=== PATIENT | female | born 1955 | race Caucasian/White ===

== ENCOUNTER → 2016-09-19 | Outpatient (CLI) | payer OTHER ==
[~2016-09-19] MED LIST: AMITIZA24 MCG PO; BUPAP 50 MG-301 EACH PO; DITROPAN XL5 M2; DULOXETINE HCL60 M1; MEVACOR10 MG PO; NEURONTIN100 MG PO; NEXIUM PO; SINGULAIR PO; TRIAMCINOLONE A15 G3 EXT; VOLTAREN75 MG; ZESTRIL10 M1 PO
--- NOTE | ~2016-09-19 | MR17 ---
[facility] A Service of [facility] RADIOLOGY TEXT RESULTS PATIENT: CHASTITY RAWLS LOCATION: [facility] : 55 UNIT #: [id number] AGE: [address]: Heraclio Lima II, MD SEX: F ORDER DR: [id number] [place] [id number] O MR#: [id number] Acc #: [id number] NAME: CHASTITY RAWLS : 1955 SEX: F STUDY DATE/TIME: 09/19/2016 9:13 UNIT: [facility] ROOM: STUDY DESCRIPTION: MR Brain WWo Contrast Attending Physician: Heraclio Lima II., M.D. Referring Physician: Heraclio Lima II., M.D. Ordering Physician: Heraclio Lima II., M.D. Primary Care Physician: Jemma Salinas M.D. MRI CENTER REPORT This report is preliminary unless electronic signature is present. EXAM MRI of the brain with and without contrast dated 09/19/2016. COMPARISON None. HISTORY Headaches since age 9. History of migraines for less than 30 years. Also has nausea and vomiting. FINDINGS Multisequence multiplanar imaging of the brain was obtained with and without contrast. GFR measured 49. 20 mL of MultiHance was administered intravenously. Age-appropriate parenchymal volume is seen. Punctate 1 or 2 hyperintense T2 tiny foci are noted in the white matter particularly in the left frontal periventricular region, nonspecific. No acute stroke, space-occupying intracranial mass, mass effect, midline shift or hydrocephalus. Postcontrast sequences do not demonstrate enhancing mass. Thick slices through the sella with the pituitary gland demonstrates an empty sella. Pineal region and upper cervical spine are grossly unremarkable. Mild S-shaped nasal septal deviation is seen. Paranasal sinuses, orbits with the ocular structures and mastoids do not demonstrate any significant abnormality. IMPRESSION 1. No acute intracranial abnormality or enhancing mass. 2. Punctate 1 or 2 hyperintense T2 foci are noted in the left frontal periventricular white matter, likely related to minimal chronic microvascular ischemic change or migraine based on age and statistics. 3. No enhancing intracranial mass. 1. Dictated by... [facility]. [facility] A Service of [facility] RADIOLOGY TEXT RESULTS PATIENT: CHASTITY RAWLS LOCATION: [facility] : 55 UNIT #: [id number] AGE: [address]: Heraclio Lima II, MD SEX: F ORDER DR: Tony Mace M.D. THIS IS AN ELECTRONICALLY VERIFIED REPORT Tony Mace M.D. at 09/20/2016 3:41 PM CPR/bd TD: 09/20/2016 09:58 JOB #: [id number] MRI CENTER REPORT Page 1 of 1
[2016-09-19 10:15] LABS: POC - CREATININE 1.2 mg/dL (0.44-1.03)
== END | disposition home or self-care (01) ==
LOC: SMRI 09-03 13:00
PROVIDERS: Psychiatry & Neurology Neurology
DX: G43.909 Migraine, unspecified, not intractable, without status migrainosus (principal); R93.8 Abnormal findings on diagnostic imaging of other specified body structures
CPT/HCPCS: 70553; 82565; A9581